=== PATIENT | male | born 1995 | race Two or more races ===

== ENCOUNTER 2024-05-24 13:21 | Emergency (ER) | payer MEDICAID, SELFPAY ==
[2024-05-24 13:21] VITALS: BMI 21.6
[2024-05-24 13:30] VITALS: BP 121/69; PULSE 92; RESP 16; TEMP 36.8; O2SAT 97
--- NOTE | 2024-05-24 14:17 | EDNOTE_ITS ---
ED Ear RME/HPI General Chief complaint: Ear Stated complaint: right ear pain x 1 wk Time Seen by Provider: 05/24/24 13:23 Arrival date/time: 05/24/24 13:21 29-year-old male presents to the emergency department today complains of right ear pain ongoing x 2 weeks. Patient reports a branch hit his right ear causing pain develop swelling Limitations: no limitations Related Data Previous Rx's ?Medication ?Instructions ?Recorded doxycycline hyclate 100 mg capsule 100 mg PO BID #14 caps 11/12/20 cephalexin 500 mg capsule 500 mg PO BID 7 days #14 caps 05/24/24 Allergies Allergy/AdvReac Type Severity Reaction Status Date / Time No Known Allergies Allergy Verified 11/12/20 08:48 Review of Systems Review of Systems Systems Reviewed: All systems reviewed, normal except as documented Constitutional Constitutional: Reports system reviewed and no additional complaints, except as documented, Denies fever(s) and Denies headache(s) Eyes Eyes: Reports system reviewed and no additional complaints, except as documented and Denies blurry vision ENT Ears, Nose, Mouth, and Throat: Reports system reviewed and no additional complaints, except as documented, Denies headache(s), Denies nasal congestion, Denies nasal discharge and Reports other (Auricular hematoma right ear) Cardiovascular Cardiovascular: Reports system reviewed and no additional complaints, except as documented, Denies chest pain and Denies dyspnea Respiratory Respiratory: Reports system reviewed and no additional complaints, except as documented, Denies chest congestion, Denies cough and Denies dyspnea Gastrointestinal Gastrointestinal: Reports system reviewed and no additional complaints, except as documented and Denies abdominal pain Integumentary/Breasts Skin/Breast: Reports system reviewed and no additional complaints, except as documented and Denies rash Neurologic Neurologic: Reports system reviewed and no additional complaints, except as documented, Reports as per HPI and Denies headache(s) Past Medical History Past Medical History NEUROLOGIC: Negative Neurological Disorders, Cerebrovascular Accident, Alzheimer's Disease or Meningitis CARDIAC: Negative Myocardial Infarction, Angina or Atherosclerotic Heart Disease RESPIRATORY: Negative Chronic Obstructive Pulmonary Disease (COPD) or Emphysema GASTROINTESTINAL: Negative Gastrointestinal Disorders, Liver Cancer or Pancreatic Cancer GENITOURINARY: Negative Genitourinary Disorders MUSCULOSKELETAL: Negative Musculoskeletal Disorders, Muscular Dystrophy or Bone Cancer ENDOCRINE: Negative Endocrine Disorders, Diabetes Mellitus Type 1 or Diabetes Mellitus Type 2 HEMATOLOGIC: Negative Blood Disorders or Anemia OTHER HISTORY: Negative Down Syndrome or Developmental Delay Social History SMOKING STATUS: Never smoker ED Exam General Limitations: Present no limitations General appearance: Present alert and in no apparent distress Head Head exam: Present atraumatic and normocephalic Eye Eye exam: Present normal appearance, PERRL and EOMI ENT ENT exam: Present mucous membranes moist and other (Auricular hematoma right ear) Neck Neck exam: Present normal inspection, full ROM and trachea midline Chest Chest inspection: Present normal inspection and symmetric chest wall rise Respiratory Respiratory exam: Present normal lung sounds bilaterally Cardiovascular Cardiovascular exam: Present regular rate, normal rhythm and normal heart sounds Abdominal Exam Abdominal exam: Present soft and normal bowel sounds Extremities Exam Extremities exam: Present normal inspection and full ROM Back Exam Back exam: Present normal inspection and full ROM Neurological Exam Neurological exam: Present alert, oriented X3 and CN II-XII intact Psychiatric Psychiatric exam: Present normal affect and normal mood Skin Skin exam: Present warm, dry, intact and normal color Course Quality Measures none Orders Category Date Time Status Set Up Suture Tray STAT Care 05/24/24 13:56 Active Wound Care NOW Care 05/24/24 13:56 Active Lidocaine 1% 20 ml [Xylocaine 1% 20 ML] Med 05/24/24 13:56 Discontinued 20 ml INFL X1 ONE Tet,Diphth,Pertuss(Acell)-Tdap [Boostrix Vacc] Med 05/24/24 13:56 Discontinued 0.5 ml IMI .ONCE ONE Vital Signs Vital signs: Vital Signs Temperature 98.2 F 05/24/24 13:30 Pulse Rate 92 05/24/24 13:30 Respiratory Rate 16 05/24/24 13:30 Blood Pressure 121/69 05/24/24 13:30 Pulse Oximetry (%) 97 05/24/24 13:30 Oxygen Delivery Method Room Air 05/24/24 13:30 O2 saturation 97% room air within normal limits Procedures -ED Abscess I/D Site: other (Ear) Side (if applicable): right Local Anesthetic: lidocaine 1% Amount of anesthesia used (mL): 1 Technique: incised with #11 blade Amount of fluid expressed (mL): 5 Irrigation: No Packing used?: none Complications: pain Ear Patient data External records reviewed:: [facility] previous records Clinical information provided by:: patient Social determinants that could affect healthcare access:: none Patient has the following chronic illnesses:: None How is presenting disease/condition affected by chronic disease/condition?: no chronic disease Evaluation data The following diagnostics were reviewed and interpreted by me:: other (specify) (N/A) Lab and/or radiology exams considered but not ordered:: Consider not ordered Interpretation Summary: N/A Medications / Prescriptions Medications or Prescriptions considered but not ordered:: Given Medication administrations:: Medication Administration History Discontinued Medications Diphtheria/Tetanus/Acell Pertussis (Diphth,Pertuss(Acell),Tet Vac 0.5 Ml Vial) 0.5 ml IMi .ONCE ONE Stop: 05/24/24 13:57 Last Admin: 05/24/24 14:45 Dose: 0.5 ml Documented By: Lidocaine HCl (Lidocaine Hcl 1% 20 Ml Vial) 20 ml INFL X1 ONE Stop: 05/24/24 13:57 Last Admin: 05/24/24 14:45 Dose: 20 ml Documented By: Given Consultations Consultation(s) initiated? (list below): No Diagnosis Ear Differential Diagnosis: other (Auricular hematoma right ear) Most likely diagnosis given after review of the tests above:: Auricular hematoma Admission Indicated Admission indicated?: not indicated Admission Request Was there a request for admission?: No Disposition Plan Disposition Plan: Discharge Discharge Attestation Discharge Attestation: The patient and all family members were given an opportunity to ask questions and understood the discharge instructions. Discharge instructions specifically effects, indications for sooner follow up or return to the emergency department, and the expected course of current diagnosis. Patient condition: Stable Medical Decision Making MDM Narrative MDM Narrative: 29-year-old male presents to the emergency department today complains of right ear pain ongoing x 2 weeks. Patient reports a branch hit his right ear causing pain develop swelling On exam patient has auricular hematoma/cauliflower ear Consultation: I spoke with my attending physician who did recommend I&D and close follow-up I&D performed patient tolerated procedure well there are significantly improved Patient be discharged home with course of antibiotics Patient discharged home in no distress to follow-up with primary care doctor in the next 24 to 48 hours and for any worsening symptoms to return to the ER immediately Differential Diagnosis Differential Diagnosis: Abscess, cellulitis Medical Records Medical records reviewed: Yes I reviewed the patient's medical records. Discharge Plan Plan Patient Disposition: HOME (Self Care) Disposition Comment: Stable Prescriptions/Referrals Prescriptions/Med Rec: New cephalexin 500 mg capsule 500 mg PO BID 7 Days Qty: 14 0RF No Action doxycycline hyclate 100 mg capsule 100 mg PO BID Qty: 14 0RF Referrals: No Primary/Family,Physician [Primary Care Provider] - In 1 week Problem List Clinical Impression: Hematoma of auricle Patient/Caregiver Discharge Instructions Education Materials: Anatomy of the Ear Additional Instructions: Please follow up with your primary care doctor in the next 24-48hrs for any worsening symptoms return here immediately Print Language: Guyanese Stand Alone Forms: Jackie Award Info., Patient Portal Info Letter PA/SCHOOL PSYCHOLOGICAL EXAMINER Supervising Physician PA/SCHOOL PSYCHOLOGICAL EXAMINER Supervising Physician: Dr rock
[2024-05-24] MEDS: DIPHTH,PERTUSS(ACELL),TET VAC 0.5 ML VIAL IMi (14:45)
[2024-05-24] MEDS: LIDOCAINE HCL 1% 20 ML VIAL INFL (14:45)
== END 2024-05-24 20:41 | disposition home or self-care (01) ==
PROVIDERS: Emergency Provider Emergency Medicine
DX: S00.431A Contusion of right ear, initial encounter (principal); W22.8XXA Striking against or struck by other objects, initial encounter; Z23 Encounter for immunization
CPT/HCPCS: 69000; 90471; 90715; 99283; J3490